=== PATIENT | female | born 1950 | race Caucasian/White ===

== ENCOUNTER 2016-10-16 06:53 | Day surgery (SDC) | payer MEDICARE, OTHER ==
[~2016-10-16] VITALS: Ht 170.2 cm; Wt 95.9 kg
[~2016-10-16 06:53] MED LIST: ASPIR-LOW81 MG PO; CALTRATE-600 W600 MG PO; CLOPIDOGREL PO; HYZAAR 12.5 MG-1 TA1 PO; TOPROL XL25 MG PO; TYLENOL 500MG500 MG PO; ZOCOR40 MG PO
[2016-10-16 07:20] VITALS: BP 149/90; PULSE 59; TEMP 98.4
[2016-10-16] MEDS ORDERED: ZOCOR 40MG40 MG PO (07:34)
[2016-10-16] MEDS ORDERED: HYZAAR 25 MG-101 TAB PO (07:35)
[2016-10-16] MEDS ORDERED: MULTIPLE VITAMI1 TA5 PO (07:35)
[2016-10-16] MEDS ORDERED: OMEGA-3 FISH1000 MG PO (07:36)
[2016-10-16 08:50] VITALS: BP 142/78; PULSE 56; TEMP 98
[2016-10-16 09:05] VITALS: BP 122/88; PULSE 55
[2016-10-16 09:20] VITALS: BP 125/75; PULSE 61
[2016-10-16 09:35] VITALS: BP 141/85; PULSE 57
[2016-10-16 12:46] VITALS: BP 127/73; PULSE 57
== END 2016-10-16 09:57 | disposition home or self-care (01) ==
LOC: SDCO 06:53
DX: Z12.11 Encounter for screening for malignant neoplasm of colon (principal); K57.30 Diverticulosis of large intestine without perforation or abscess without bleeding; I25.10 Atherosclerotic heart disease of native coronary artery without angina pectoris; K57.90 Diverticulosis of intestine, part unspecified, without perforation or abscess without bleeding
CPT/HCPCS: G0121; J2250; J3010; J7030